=== PATIENT | male | born 1965 | race Caucasian/White ===

== ENCOUNTER 2016-07-01 16:14 | Emergency (ER) | payer OTHER ==
[2016-07-01] MEDS ORDERED: Metoclopramide IV* 5 MG/ML 2 ML VIAL IV SLOW PU ONE (17:24)
--- NOTE | 2016-07-01 17:49 | RAD ---
HISTORY: Headache COMPARISONS: None TECHNIQUE: Multiple contiguous axial CT scans were obtained of the head without intravenous contrast. FINDINGS: HEMORRHAGE/INFARCT: There is no hemorrhage or acute infarct. MASSES/SHIFT: There is no mass or shift. EXTRA-AXIAL SPACES: There are no extra-axial fluid collections. SULCI AND VENTRICLES: The sulci and ventricles are normal in size and position for the patient's stated age. CEREBRUM: There are no focal parenchymal abnormalities. BRAINSTEM: There are no focal parenchymal abnormalities. CEREBELLUM: There are no focal parenchymal abnormalities. VESSELS: The vessels are grossly normal. PARANASAL SINUSES: The paranasal sinuses are clear. ORBITS: The orbits are unremarkable. BONES AND SOFT TISSUE: No bone or soft tissue abnormalities are noted. OTHER: None IMPRESSION: NO ACUTE INTRACRANIAL PATHOLOGY.
[2016-07-01 18:08] LABS: Hematocrit 47 % (42-52); Hemoglobin 15.9 g/dl (14.0-18.0); Mean Corpuscular HGB Conc 34 g/dl (31-36); Mean Corpuscular Hemoglobin 29 pg (27-31); Mean Corpuscular Volume 87 fL (80-94); Mean Platelet Volume 9 um3 (7.4-10.4); Red Blood Count 5.41 10^6/ul (4.0-5.4); Red Cell Distribution Width 13 % (10.5-15)
[2016-07-01 18:26] LABS: ALT 26 U/L (7-52); AST 20 U/L (13-39); Albumin 4.7 g/dL (3.2-5.2); Alkaline Phosphatase 42 U/L (34-104); Anion Gap 8 mmol/L (2-11); BUN/Creatinine Ratio 12.9 (8-20); Blood Urea Nitrogen 11 mg/dL (6-24); CO2 Carbon Dioxide 26 mmol/L (22-32); Calcium 9.4 mg/dL (8.6-10.3); Chloride 102 mmol/L (101-111); EGFR African American 123.7 (>60); EGFR Non-African American 96.2 (>60); Globulin 2.7 g/dL (2-4); Glucose 111 mg/dL (70-100); Potassium 3.9 mmol/L (3.5-5.0); Sodium 136 mmol/L (133-145); Total Protein 7.4 g/dL (6.4-8.9)
[2016-07-01 19:23] LABS: C Reactive Protein < 1.00 mg/L (< 5.00)
[2016-07-01 19:54] LABS: Erythrocyte Sed Rate 2 mm/Hr (0-14)
[2016-07-01 20:31] VITALS: BP 131/84
--- NOTE | 2016-07-01 20:43 | ED ---
Rajeev Rodgers Aidan, scribed for Janak Chan on 07/01/16 at 1954 . Progress - Progress Note Progress Note: This is a sign out from Dr. Abraham. The patient will be diagnosed with migraine. pt seen by dr stallworth neurology and recommended to dc home. Course/Dx - Diagnoses Provider Diagnoses: Head ache The documentation as recorded by the Rajeev gutierrez Aidan accurately reflects the service I personally performed and the decisions made by Dustin leong Emmanuel.
--- NOTE | 2016-07-01 21:41 | CONS ---
NEUROLOGY CONSULTATION: DATE OF CONSULT: 07/01/16 LOCATION: He is in the emergency room. REFERRING PROVIDER: Dr. Abraham. CHIEF COMPLAINT: Headache. 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 He had a little bit more coffee than he usually does, but otherwise felt pretty well. He started to get nauseous and then he started to get a bad headache. He started vomiting and the headache became pretty severe. He had vomiting of some materials and then dry heaving for a couple of hours along with a bad headache and presented to the emergency room. In the emergency room, he was given an antiemetic, fluids, and feels much better. At this point, he has minimal to no headache and his nausea has resolved. He ate some restaurant food that was about 6 days old and his felt that it should not have been eaten that it was too old. He gets episodic migraines typically a couple of times a year. They are hemicranial and associated with photophobia and sonophobia and if he lies down and takes a nonsteroidal, it will go away. In addition, he gets mild headaches more frequently, which usually respond just to ibuprofen alone. Headaches are typically trigged by being out in the bright sun for long periods of time or too much coffee or not drinking his usual amount of coffee. Nobody else have been sick at home. There is no family history of migraines. REVIEW OF SYSTEMS: Notable for generally feeling well lately. He has not had any intestinal problems until today. He has not had any fevers or chills other than when he was vomiting earlier and he felt very chilled. The heater has been on at their house for 3 days. PHYSICAL EXAM: He is afebrile, temperature 98 degrees temporally. Blood pressure 126/74, heart rate in the 80s. Respirations 16 and oxygen saturation 97% on room air. Lungs are clear bilaterally. Heart is in a regular rate and rhythm without murmurs. Carotid pulses are present and no cervical bruits. Oral mucosa is moist and there is no erythema or exudates. There is no oral trauma. Neck is supple, there is no meningismus. Neurologically, pupils, fundi, and eye movements are normal. Visual allen are full to confrontation. There is no ptosis. There is no pain with eye movement. Facial musculature is intact and symmetric. Facial sensation to light touch is symmetric. Palate and tongue appear normal, tongue protrudes in the midline, palate rises symmetrically. There is no dysarthria. Hearing is intact. Motor exam reveals normal tone and strength in the limbs proximally and distally. There is no pronator drift. Finger taps are normal. There is no rest tremor. [id number]-sm-[id number] maneuver is normal bilaterally. Reflexes are intact and symmetric, but a bit hypoactive. Plantars are flexor bilaterally. He is alert and oriented and an excellent detailed historian. Memory is intact and language is fluent. He has good attention, concentration, and fund of knowledge. DIAGNOSTIC STUDIES/LAB DATA: Laboratory data obtained this admission notable for CBC notable for borderline elevated white blood cell count at 11.0, 85% neutrophils. Chemistries are normal other than glucose of 111, total bilirubin 1.2. CRP less than 1. He had a CT of the brain, which I reviewed and which was interpreted as normal and looks normal to my review as well. IMPRESSION AND PLAN: Migraine and possible gastroenteritis. His symptoms have resolved. He does not show any signs of meningismus or symptoms suggestive of subarachnoid hemorrhage or meningitis, and so I do not think he needs a lumbar puncture. We discussed ways to try to avoid migraines and if they do get worse , to call regarding the treatments. Also, I suggested he limit his caffeine intake as too much caffeine can make migraines more frequent and chronic. [id number]/CPS #: [id number] MTDD
== END 2016-07-01 20:30 ==
LOC: ED 16:14
DX: R51 Headache (principal)
CPT/HCPCS: 36415; 70450; 80053; 83605; 84484; 85025; 85652; 86140; 93005; 99283